=== PATIENT | male | born 1950 | race Caucasian/White ===

== ENCOUNTER 2016-05-22 13:13 | Day surgery (SDC) | payer MEDICARE ==
[~2016-05-22] VITALS: Ht 172.7 cm; Wt 108.9 kg
[~2016-05-22 13:13] MED LIST: ASPIRIN CHILDRE81 MG PO; ATENOLOL25 MG PO; CHEWABLE ASPIRI81 MG PO; CIPRO 500MG TA500 MG PO; COREG 6.25MG6.25 MG PO; COUMADIN6 MG PO; DICLOFENAC SODI75 M2 PO; EPA/GLA1 SGL PO; FISH OIL1000 MG PO; FLAGYL500 M1 PO; FLEXERIL10 MG PO; HYDROCODONE-APA1 TA1 PO; LISINOPRIL40 MG PO; MEMANTINE HCL10 MG PO; METFORMIN500 MG PO; MIRAPEX0.25 MG PO; MULTI-VITAMIN1 EAC1 PO; MULTIVITAMIN1 TA1 PO; NORVASC10 MG PO; OMEPRAZOLE DR20 MG PO; PRAVASTATIN 40M40 MG PO; PRAVASTATIN20 MG PO; RELAFEN500 MG PO; WARFARIN4 MG PO
[2016-05-22 13:22] VITALS: BP 178/82
[2016-05-22] MEDS ORDERED: GALANTAMINE8 MG PO (13:27)
[2016-05-22 13:51] VITALS: BP 178/82
[2016-05-22 13:53] VITALS: BP 146/75
--- NOTE | 2016-05-22 14:00 | Procedure Note ---
Procedure detail Date of procedure: 05/22/16 Anesthesiologist: James ratliff CRNA Complications: None Pre-procedure diagnosis: Degenerative disease of her spine multiple levels lumbar recopy symptoms. Lumbar spondylosis. Lumbar facet arthropathy. Post laminotomy syndrome. Post fusion syndrome. Post-procedure diagnosis: Same. Indications for procedure: Very pleasant 66-year-old white male that we have treated in the past for low back pain secondary to degenerative disease lumbar spine multiple levels as well as lumbar spondylosis multiple level. Post laminectomy syndrome lumbar spine. He is status post one round medial branch block L3-4, L4-5, L5-S1. Patient reported 90 percent improved terms of low back pain after receiving medial branch blocks. He returns our procedure area today for second round medial branch block L3-4, L4-5, L5-S1 bilaterally. Procedure detail: Informed consent was obtained and the risk and benefits of the procedure was explained to the patient. Patient was taken to the procedure room where noninvasive monitors were placed, including noninvasive blood pressure cuff as well as pulse oximeter. The area over the lumbar spine was cleansed using chlorhexidine as a cleansing solution. I anesthetized the skin and subcutaneous tissues with 1% Lidocaine. I placed 22-gauge spinal needles into the facet joint / medial branches of [L3-L4, L4-L5, and L5-S1] bilaterally. Needle placement was confirmed with fluoroscopy. After confirmation of needle placement, each site was injected with 1 mL of 1% lidocaine and 0.25 % Marcaine and 10 mg of Depo- Medrol. A total of 80 mg of depo medrol was used for bilateral medial branch blocks of [L3-L4, L4-L5, and L5-S1] bilaterally. Patient tolerated the procedure without difficulty. There were no complications. Plan and disposition: Patient was reevaluated tenderness post procedure. Patient reports 90 percent improved terms of his lumbar back pain. Pain is improved in flexion, extension, LEFT and RIGHT rotation. at 2352
[2016-05-22 14:10] VITALS: BP 146/72
== END 2016-05-22 14:10 | disposition home or self-care (01) ==
LOC: PM 13:13
PROC: 3E0T33Z Introduction of Anti-inflammatory into Peripheral Nerves and Plexi, Percutaneous Approach (ICD-10-PCS; principal; 2016-05-22)
PROC: 3E0T3BZ Introduction of Anesthetic Agent into Peripheral Nerves and Plexi, Percutaneous Approach (ICD-10-PCS; 2016-05-22)
PROC: BR161ZZ Fluoroscopy of Lumbar Facet Joint(s) using Low Osmolar Contrast (ICD-10-PCS; 2016-05-22)
DX: M51.36 Other intervertebral disc degeneration, lumbar region (principal); M47.896 Other spondylosis, lumbar region; M96.1 Postlaminectomy syndrome, not elsewhere classified
CPT/HCPCS: J1030

== ENCOUNTER → 2016-12-07 | Outpatient (CLI) | payer MEDICARE ==
[2016-12-07 16:47] LABS: BUN 8 mg/dL (7-18)
[2016-12-07 16:48] LABS: GFR (ESTIMATED) 84 ML/MIN (>60)
== END ==
LOC: LAB 13:35 → RT 13:35
PROVIDERS: Physician Assistant
DX: I25.10 Atherosclerotic heart disease of native coronary artery without angina pectoris (principal); K76.0 Fatty (change of) liver, not elsewhere classified; Z01.818 Encounter for other preprocedural examination

== ENCOUNTER 2016-12-10 11:51 | Day surgery (SDC) | payer MEDICARE ==
[~2016-12-10] VITALS: Ht 172.7 cm; Wt 111.1 kg
[~2016-12-10 11:51] MED LIST changes: +GALANTAMINE8 MG PO
--- NOTE | 2016-12-10 13:41 | Operative Note ---
Colonoscopy ([place]) Procedure date: 12/10/16 Date of : 48 Procedure:Colonoscopy Colonoscopy with cold snare polypectomy Indications: Mr. Purvis is a 66-year-old gentleman who is here for initial screening colonoscopy. He reports some occasional bilateral lower pelvic pain. He reports no abdominal pain, weight loss, change in his bowel habits or rectal bleeding. He reports no family history of colon cancer. Performing Provider: Norma Vicente MD Referrring Provider: Jayesh Goncalves M.D. Sedation: MAC sedation Procedure: Prior to the procedure, a history and physical exam was performed, and patient medications and allergies were reviewed. The risks and benefits of the procedure and the sedation options and risks were discussed with the patient. All questions were answered and informed consent was obtained. Patient identification and proposed procedure were verified by the physician and the nurse. The patient was placed in a left lateral decubitus position. Throughout the procedure, the patient's blood pressure, pulse, and oxygen saturations were monitored continuously. Findings: On digital rectal examination there was normal rectal tone. There were no external hemorrhoids. The prostate was 2+, smooth, soft, symmetric without nodules. The colonoscope was introduced through the anal canal to the rectum and advanced to the cecum. The ileocecal valve and appendiceal orifice were identified. The scope was advanced a short distance into the ileum which appeared grossly normal. The scope was then withdrawn into the colon. There were 7 colon polyps identified in the transverse 3, descending 3 and sigmoid 1. These ranged in size from 4-9 mm and were all removed via cold snare polypectomy. There was a lipoma in the ascending colon. There were scattered diverticuli throughout the descending and sigmoid colon (LEFT colon). The rectum itself was normal. Upon retroflexion within the rectum there were grade 2 internal hemorrhoids. Impressions: 1. Colonic polyps 7 2. Ascending colon lipoma 3. Extensive left-sided diverticulosis 4. Grade 2 internal hemorrhoids Recommendations: I will follow up the polyp pathology and recommend repeat colonoscopy again in 2 -3 years based upon the polyp histology. I would encourage fiber supplementation on a long-term daily maintenance basis. Complications: None EBL (ml): 0 at 1341
[2016-12-10 15:04] VITALS: BP 109/58
== END 2016-12-10 14:36 | disposition home or self-care (01) ==
LOC: SDC 11:51
PROVIDERS: Internal Medicine Gastroenterology
PROC: 0DBL8ZX Excision of Transverse Colon, Via Natural or Artificial Opening Endoscopic, Diagnostic (ICD-10-PCS; 2016-12-10)
PROC: 0DBN8ZX Excision of Sigmoid Colon, Via Natural or Artificial Opening Endoscopic, Diagnostic (ICD-10-PCS; 2016-12-10)
PROC: 0DBM8ZX Excision of Descending Colon, Via Natural or Artificial Opening Endoscopic, Diagnostic (ICD-10-PCS; principal; 2016-12-10 13:00)
DX: Z12.11 Encounter for screening for malignant neoplasm of colon (principal); D12.3 Benign neoplasm of transverse colon; D12.4 Benign neoplasm of descending colon; K63.5 Polyp of colon; D17.5 Benign lipomatous neoplasm of intra-abdominal organs; K57.30 Diverticulosis of large intestine without perforation or abscess without bleeding; K64.1 Second degree hemorrhoids; I25.10 Atherosclerotic heart disease of native coronary artery without angina pectoris; I10 Essential (primary) hypertension; Z95.5 Presence of coronary angioplasty implant and graft; E78.5 Hyperlipidemia, unspecified; G47.33 Obstructive sleep apnea (adult) (pediatric); E66.9 Obesity, unspecified; K21.9 Gastro-esophageal reflux disease without esophagitis; M54.5 Low back pain; G89.29 Other chronic pain; Z79.82 Long term (current) use of aspirin; Z79.899 Other long term (current) drug therapy; Z86.711 Personal history of pulmonary embolism; Z96.653 Presence of artificial knee joint, bilateral; Z80.1 Family history of malignant neoplasm of trachea, bronchus and lung; Z83.2 Family history of diseases of the blood and blood-forming organs and certain disorders involving the immune mechanism; Z80.42 Family history of malignant neoplasm of prostate; Z68.41 Body mass index [BMI] 40.0-44.9, adult